=== PATIENT | female | born 1985 | race Asian ===

== ENCOUNTER 2016-12-30 17:54 | Emergency (ER) | payer OTHER ==
[2016-12-30 18:22] VITALS: BMI 33.8
[2016-12-30 19:27] LABS: URINE APPEARANCE CLEAR; URINE BILIRUBIN NEGATIVE (NEGATIVE); URINE BLOOD NEGATIVE (NEGATIVE); URINE COLOR LTYELLOW; URINE GLUCOSE (UA) NEGATIVE (NEGATIVE); URINE KETONE NEGATIVE (NEGATIVE); URINE LEUK ESTERASE NEGATIVE (NEGATIVE); URINE NITRITE NEGATIVE (NEGATIVE); URINE PROTEIN NEGATIVE (NEGATIVE); URINE UROBILINOGEN NEGATIVE mg/dL (0.2-1.0)
[2016-12-30] MEDS ORDERED: SODIUM CHLORIDE 1,000 ML IV STA (19:28)
--- NOTE | 2016-12-30 19:29 | PDOC ---
History of Present Illness - General Chief Complaint: Weakness Stated Complaint: WEAKNESS Time Seen by Provider: 12/30/16 19:27 - History of Present Illness Initial Comments: 12/30/16 20:29 31 year old female c/o generalized weakness and intermittent LUQ pain x 1 week. Patient history of depression with ch[facility] antidepressant use. patient reports hasn't seek medical care due to school obligation. patient has a follow up with pmd tomorrow. denies SI, HI Past History - Travel Traveled outside of the country in the last 30 days: Yes Close contact w/someone who was outside of country & ill: No - Past Medical History Allergies/Adverse Reactions: Allergies Allergy/AdvReac Type Severity Reaction Status Date / Time No Known Allergies Allergy Verified 12/30/16 18:22 Home Medications: Ambulatory Orders Quetiapine Fumarate [Seroquel -] 300 mg PO HS 06/30/12 Aripiprazole [Abilify -] 1 tab PO HS 01/25/15 Benztropine Mesylate 1 tab PO HS 01/25/15 Clonazepam [KlonoPIN] 1 tab PO BID 01/25/15 Fluoxetine HCl 3 cap PO HS 01/25/15 Iron,Carbonyl/Vit C/Vit B12/FA [Fe C Plus Tablet] 1 each PO DAILY 01/25/15 Anemia: Yes (IRON DEFICIENCY ANEMIA) Asthma: No Cancer: No Cardiac Disorders: No CVA: No COPD: No CHF: No Dementia: No Diabetes: No GI Disorders: Yes (CONSTIPATION,ABDOMINAL PAIN.GERD) Disorders: No HTN: No Hypercholesterolemia: No Liver Disease: No Psychiatric Problems: Yes (depression, anxiety) Seizures: No Thyroid Disease: No - Surgical History Abdominal Surgery: No Appendectomy: No Cardiac Surgery: No Cholecystectomy: No Lung Surgery: No Neurologic Surgery: No Orthopedic Surgery: No - Psycho/Social/Smoking Cessation Hx Anxiety: No Suicidal Ideation: No Smoking Status: No Smoking History: Never smoked Have you smoked in the past 12 months: No Number of Cigarettes Smoked Daily: 0 Information on smoking cessation initiated: No Hx Alcohol Use: No Drug/Substance Use Hx: No Substance Use Type: None Hx Substance Use Treatment: No Review of Systems - Review of Systems Able to Perform ROS?: Yes Is the patient limited Sinhala proficient: No Constitutional: No: Symptoms Reported, See HPI, Chills, Diaphoresis, Fever, Loss of Appetite, Malaise, Night Sweats, Weakness, Weight Stable, Unintentional Wgt. Loss, Unexplained wgt Loss, Other ABD/GI: Yes: Abdominal cramping (intermittent currently asymptomatic) *Physical Exam - Vital Signs Last Vital Signs Temp Pulse Resp BP Pulse Ox 98 F 96 H 18 120/71 98 12/30/16 18:16 12/30/16 18:16 12/30/16 18:16 12/30/16 18:16 12/30/16 18:16 - Physical Exam General Appearance: Yes: Appropriately Dressed Respiratory/Chest: positive: Lungs Clear Cardiovascular: positive: Regular Rhythm, Regular Rate Gastrointestinal/Abdominal: positive: Normal Bowel Sounds, Soft Musculoskeletal: positive: Normal Inspection. negative: CVA Tenderness Extremity: positive: Normal Capillary Refill, Normal Inspection, Normal Range of Motion Integumentary: positive: Normal Color, Dry, Warm Neurologic: positive: Fully Oriented, Alert, Normal Mood/Affect ED Treatment Course - LABORATORY CBC & Chemistry Diagram: 12/30/16 19:43 12/30/16 19:43 Medical Decision Making - Medical Decision Making 12/30/16 21:37 A: GERD? weakness P: CBC CMP urine UA *DC/Admit/Observation/Transfer Diagnosis at time of Disposition: Weakness generalized - Discharge Dispostion Disposition: HOME - Referrals Referrals: Mishel Castañeda MD [Primary Care Provider] - - Patient Instructions Printed Discharge Instructions: DI for Dehydration -- Adult Additional Instructions: drink plenty of fluids. follow up with your doctor as soon as possible. you may take Maalox for GAS/ acid reflux. this is over the counter
[2016-12-30 19:55] LABS: BASOPHIL 0.7 % (0-2.0); EOSINOPHIL 1.5 % (0-4.5); MCH 28.8 pg (25.7-33.7); MCHC 33.4 g/dl (32.0-36.0); MEAN PLT VOLUME 7.7 fl (7.5-11.1); NEUTROPHILS 58.4 % (42.8-82.8); PLATELET COUNT 316 K/MM3 (134-434); RDW 14.6 % (11.6-15.6); WHITE BLOOD COUNT 7.3 K/mm3 (4.0-10.0)
--- NOTE | 2016-12-30 20:02 | PDOC ---
*Physical Exam - Vital Signs Last Vital Signs Temp Pulse Resp BP Pulse Ox 98 F 96 H 18 120/71 98 12/30/16 18:16 12/30/16 18:16 12/30/16 18:16 12/30/16 18:16 12/30/16 19:26 ED Treatment Course - LABORATORY CBC & Chemistry Diagram: 12/30/16 19:43 12/30/16 19:43 - ADDITIONAL ORDERS Additional order review: Laboratory Results 12/30/16 12/30/16 19:17 19:17 Urine Color Ltyellow Urine Appearance Clear Urine pH 5.0 Urine Protein Negative Urine Glucose (UA) Negative Urine Ketones Negative Urine Blood Negative Urine Nitrite Negative Urine Bilirubin Negative Urine Urobilinogen Negative Ur Leukocyte Esterase Negative Urine HCG, Qual Negative Medical Decision Making - Medical Decision Making 12/30/16 20:02 agree with care from LILLIAM John *DC/Admit/Observation/Transfer Diagnosis at time of Disposition: Weakness generalized - Discharge Dispostion Disposition: HOME - Referrals Referrals: Mishel Castañeda MD [Primary Care Provider] - - Patient Instructions Printed Discharge Instructions: DI for Dehydration -- Adult Additional Instructions: drink plenty of fluids. follow up with your doctor as soon as possible. you may take Maalox for GAS/ acid reflux. this is over the counter
[2016-12-30 20:17] LABS: ALBUMIN 3.6 g/dl (3.4-5.0); ANION GAP 6 (8-16); CALCIUM 8.4 mg/dL (8.5-10.1); CO2 27 mmol/L (21-32); CREATININE 0.7 mg/dL (0.55-1.02); GLUCOSE,RANDOM 110 mg/dL (74-106); SGOT/AST 21 U/L (15-37); SGPT/ALT 28 U/L (12-78)
[2016-12-30 20:18] LABS: ALK PHOS 95 U/L (45-117)
[2016-12-30 20:25] LABS: BILIRUBIN,TOTAL < 0.1 mg/dL (0.2-1.0)
[2016-12-30 21:39] VITALS: BP 135/80; PULSE 82; TEMP 98.2
== END 2016-12-30 21:39 | disposition home or self-care (01) ==
LOC: JER 17:54
PROC: 3E0337Z Introduction of Electrolytic and Water Balance Substance into Peripheral Vein, Percutaneous Approach (ICD-10-PCS; principal; 2016-12-30)
DX: R53.1 Weakness (principal); E86.0 Dehydration; D50.8 Other iron deficiency anemias; F41.8 Other specified anxiety disorders
CPT/HCPCS: 36415; 80053; 81003; 84443; 84703; 85025; 96360; 99284-25

== ENCOUNTER 2017-10-22 18:57 | Emergency (ER) | payer OTHER ==
[2017-10-22 19:18] VITALS: BMI 33.8
--- NOTE | 2017-10-22 19:19 | PDOC ---
Rapid Medical Evaluation Time Seen by Provider: 10/22/17 19:14 Medical Evaluation: Allergies Allergy/AdvReac Type Severity Reaction Status Date / Time No Known Allergies Allergy Verified 12/30/16 18:22 10/22/17 19:14 I have performed a brief in-person evaluation of this patient. The patient presents with a chief complaint of abdominal cramp since this afternoon. States menstruation started yesterday, with no nausea or vomiting. Denies dizziness or shortness of breath Pertinent physical exam findings: NAD abdomen + bowel sounds, non tender I have ordered the following: took advil at 3pm The patient will proceed to the ED for further evaluation.
--- NOTE | 2017-10-22 20:02 | PDOC ---
History of Present Illness - General Chief Complaint: Pain, Acute Stated Complaint: ABD PAIN Time Seen by Provider: 10/22/17 19:14 - History of Present Illness Initial Comments: 32 year old female with multiple pscyhiatric comorbidities complaining of sudden onset lower abdominal pain a few hours prior while at work that subsided on its own. She had not pain on presentation to the ED. She is currently on her menses. Describes the pain as a lower abdominal cramping that started on the right side and radiated to the left then ceased. She has been scanned in the past for renal stones without any positive findings. Denies fevers, nausea, vomiting, diarrhea, constipation, or other symptoms. 10/22/17 23:05 Past History - Past Medical History Allergies/Adverse Reactions: Allergies Allergy/AdvReac Type Severity Reaction Status Date / Time No Known Allergies Allergy Verified 10/22/17 19:14 Home Medications: Ambulatory Orders Quetiapine Fumarate [Seroquel -] 300 mg PO HS 06/30/12 Aripiprazole [Abilify -] 1 tab PO HS 01/25/15 Benztropine Mesylate 1 tab PO HS 01/25/15 Fluoxetine HCl 3 cap PO HS 01/25/15 Iron,Carb/Vit C/Vit B12/Folic [Fe C Plus Tablet] 1 each PO DAILY 01/25/15 clonazePAM [KlonoPIN] 1 tab PO BID 01/25/15 Cephalexin Monohydrate [Keflex -] 500 mg PO BID #14 capsule 04/08/17 Anemia: Yes (IRON DEFICIENCY ANEMIA) Asthma: No Cancer: No Cardiac Disorders: No CVA: No COPD: No CHF: No Dementia: No Diabetes: No GI Disorders: Yes (CONSTIPATION,ABDOMINAL PAIN.GERD) Disorders: No HTN: No Hypercholesterolemia: No Liver Disease: No Psychiatric Problems: Yes (depression, anxiety) Seizures: No Thyroid Disease: No - Surgical History Abdominal Surgery: No Appendectomy: No Cardiac Surgery: No Cholecystectomy: No Lung Surgery: No Neurologic Surgery: No Orthopedic Surgery: No - Suicide/Smoking/Psychosocial Hx Smoking Status: No Smoking History: Never smoked Have you smoked in the past 12 months: No Number of Cigarettes Smoked Daily: 0 Hx Alcohol Use: No Drug/Substance Use Hx: No Substance Use Type: None Hx Substance Use Treatment: No Review of Systems - Review of Systems Constitutional: No: Chills, Diaphoresis, Fever HEENTM: No: Blurred Vision, Tearing, Recent change in vision, Double Vision, Cataracts Respiratory: No: Cough, Shortness of Breath Cardiac (ROS): No: Chest Pain, Edema, Lightheadedness ABD/GI: No: Diarrhea, Nausea, Vomiting : Yes: Other (menses). No: Burning, Dysuria, Discharge Musculoskeletal: No: Back Pain, Gout, Joint Pain Integumentary: No: Bruising, Change in Color, Flushing, Lesions, Lumps Neurological: No: Headache, Numbness, Paresthesia Psychiatric: Yes: Anxiety, Depression, Emotional Problems Endocrine: No: Flushing, Intolerance to Cold Hematologic/Lymphatic: No: Anemia, Blood Clots, Easy Bleeding, Easy Bruising *Physical Exam - Vital Signs Last Vital Signs Temp Pulse Resp BP Pulse Ox 98.4 F 77 19 115/73 99 10/22/17 19:15 10/22/17 19:15 10/22/17 19:15 10/22/17 19:15 10/22/17 19:15 - Physical Exam General Appearance: Yes: Nourished, Appropriately Dressed. No: Apparent Distress HEENT: positive: EOMI, SANDRA, Normal ENT Inspection, Normal Voice Neck: positive: Trachea midline, Normal Thyroid, Supple. negative: Tender, Rigid Respiratory/Chest: positive: Lungs Clear, Normal Breath Sounds. negative: Chest Tender, Respiratory Distress, Accessory Muscle Use Cardiovascular: positive: Regular Rhythm, Regular Rate Gastrointestinal/Abdominal: positive: Normal Bowel Sounds, Flat, Soft. negative : Tender Musculoskeletal: positive: Normal Inspection. negative: CVA Tenderness Extremity: positive: Normal Capillary Refill, Normal Inspection, Normal Range of Motion, Pelvis Stable. 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 Labs WNL and renal ultrasound not demonstrating any acute pathology. Abdominal exam completely benign. Will DC with Tylenol and ibuprofen use instructions. 10/22/17 23:28 *DC/Admit/Observation/Transfer Diagnosis at time of Disposition: Abdominal pain Qualifiers: Abdominal location: lower abdomen, unspecified Qualified Code(s): R10.30 - Lower abdominal pain, unspecified - Discharge Dispostion Disposition: HOME Condition at time of disposition: Improved Decision to Admit order: No - Referrals Referrals: Mishel Castañeda MD [Primary Care Provider] - - Patient Instructions Printed Discharge Instructions: DI for Acute Abdomen Additional Instructions: Please use Tylenol and ibuprofen for your abdominal pain. Your labs were all fine. Please follow up with Dr. Castañeda within a few days. Please return to the ED if you have new or worsening symptoms. - Post Discharge Activity
--- NOTE | 2017-10-22 20:25 | PDOC ---
Attending Attestation - HPI HPI: 10/22/17 21:12 The patient is a 32 year old female, with a significant past medical history of anemia, constipation, GERD, depression and anxiety, who presents to the emergency department complaining of abdominal pain for the past 3 hours. She describes her abdominal pain as localized in the lower quadrants, without radiation or modifying factors. She notes that she is currently on her menstrual period and she is having heavy bleeding. The patient denies chest pain, shortness of breath, headache or dizziness. Denies fever, chills, nausea, vomiting, diarrhea and constipation. Denies dysuria, frequency, urgency and hematuria. LMP: Current Allergies: None Past surgical history: None reported Social History: No alcohol, tobacco or drug use reported - Physicial Exam PE: 10/22/17 21:12 Constitutional: Awake, alert, oriented. No acute distress. Head: Normocephalic. Atraumatic Eyes: PERRL. EOMI. Conjunctivae are not pale. ENT: Mucous membranes are moist and intact. Posterior pharynx without exudates or erythema. Uvula midline. Neck: Supple. Full ROM. No lymphadenopathy. Cardiovascular: Regular rate. Regular rhythm. S1, S2 regular. Distal pulses are 2+ and symmetric. Pulmonary/Chest: No evidence of respiratory distress. Clear to auscultation bilaterally No wheezing, rales or rhonchi. Abdominal: Soft and non-distended. There is no tenderness. No rebound, guarding or rigidity. No organomegaly. No palpable masses. Good bowel sounds. Back: No CVA tenderness. Musculoskeletal: No edema. No cyanosis. No clubbing. Full range of motion in all extremities. Nocalf tenderness. Radial/pedal pulses are intact and 2+ bilaterally Skin: Skin is warm and dry. No petechiae. No purpura. Neurological: Alert and oriented to person, place, and time. Cranial nerves II -XII are grossly intact. Normal speech. Strength is grossly symmetric. No sensory deficits. Psychiatric: Good eye contact. Normal interaction, affect and behavior. <Bucky Bettencourt - Last Filed: 10/22/17 21:12> - Resident Resident Name: Nini Justin - ED Attending Attestation I have performed the following: I have examined & evaluated the patient, The case was reviewed & discussed with the resident, I agree w/resident's findings & plan, Exceptions are as noted - Medical Decision Making 10/22/17 20:25 I, Dr. Aishwarya Gonzalez, DO, attest that this document has been prepared under my direction and personally reviewed by me in its entirety. I further attest, that it accurately reflects all work, treatment, procedures and medical decision -making performed by me. 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 states today lower abd pain feels worse than just her cramping will check labs, renal u/s given lower abd pain that radiates to flank will check for uti will monitor and reassess 10/23/17 01:51 labs reviewed 10/23/17 01:51 pt denies all pain feels better resident discussed lab and imaging results iwth the patient stable for d/c to home <Aishwarya Gonzalez - Last Filed: 10/23/17 01:52>
[2017-10-22 21:42] LABS: HCG,QUALITATIVE URINE NEGATIVE
[2017-10-22 21:44] LABS: URINE APPEARANCE CLOUDY; URINE BILIRUBIN NEGATIVE (<2.0 mg/dL); URINE COLOR DKYELLOW; URINE GLUCOSE (UA) NEGATIVE (NEGATIVE); URINE KETONE NEGATIVE (NEGATIVE); URINE NITRITE NEGATIVE (NEGATIVE); URINE UROBILINOGEN NEGATIVE mg/dL (0.2-1.0)
[2017-10-22 21:45] LABS: BASO % 0.3 % (0-2.0); EOS % 0.2 % (0-4.5); HEMATOCRIT 40.5 % (32.4-45.2); HEMOGLOBIN 13.3 GM/dL (10.7-15.3); MCH 28.1 pg (25.7-33.7); MCHC 32.9 g/dl (32.0-36.0); MEAN CELL VOLUME 85.4 fl (80-96); MEAN PLT VOLUME 7.8 fl (7.5-11.1); MONO % 3.2 % (3.8-10.2); NEUT % 85.3 % (42.8-82.8); PLATELET COUNT 344 K/MM3 (134-434); RBC 4.75 M/mm3 (3.60-5.2); RDW 14.9 % (11.6-15.6); WHITE BLOOD COUNT 10.3 K/mm3 (4.0-10.0)
[2017-10-22 21:54] LABS: URINE LEUK ESTERASE 1+ (NEGATIVE); URINE PROTEIN 2+ (NEGATIVE)
[2017-10-22 21:56] LABS: EPI CELLS FEW /HPF (FEW); URINE MUCUS RARE
[2017-10-22 22:10] LABS: ALBUMIN 3.8 g/dl (3.4-5.0); ALK PHOS 84 U/L (45-117); ANION GAP 6 (8-16); BILIRUBIN,TOTAL 0.2 mg/dL (0.2-1.0); BLOOD UREA NITROGEN 20 mg/dL (7-18); CALCIUM 8.7 mg/dL (8.5-10.1); CHLORIDE 107 mmol/L (98-107); CO2 27 mmol/L (21-32); CREATININE 0.8 mg/dL (0.55-1.02); GLUCOSE,RANDOM 94 mg/dL (74-106); LIPASE 141 U/L (73-393); POTASSIUM 4.3 mmol/L (3.5-5.1); SGOT/AST 25 U/L (15-37); SGPT/ALT 28 U/L (12-78); SODIUM 140 mmol/L (136-145); TOT PROT 7.8 g/dl (6.4-8.2)
[2017-10-23] VITALS: BP 126/78; PULSE 89; TEMP 98.5
== END 2017-10-23 00:01 | disposition home or self-care (01) ==
LOC: JER 18:57
DX: N94.6 Dysmenorrhea, unspecified (principal)
CPT/HCPCS: 36415; 76775-TC; 80053; 81003; 81015; 83690; 84703; 85025; 99281-25

== ENCOUNTER 2018-03-19 16:24 | Emergency (ER) | payer OTHER ==
[2018-03-19 17:01] VITALS: BP 127/77; PULSE 83; TEMP 98.9; BMI 35.5
--- NOTE | 2018-03-19 17:37 | PDOC ---
History of Present Illness - General Chief Complaint: Pain Stated Complaint: ABD PAIN History Source: Patient Exam Limitations: No Limitations - History of Present Illness Travel History: No Initial Comments: 03/19/18 17:35 33 yr female with 5-6 months on and off left sided abd pain with loose stool after eating and with menses. Pt denies nv no fever or chills. Pt has been seen in this ER for same, pt has seen GI 5 months ago negative workup, however pt has not had colonoscopy. pt denies sexual activity. pt admits to takin iron pills when she has her menses suffers from constipation. Past History - Past Medical History Allergies/Adverse Reactions: Allergies Allergy/AdvReac Type Severity Reaction Status Date / Time No Known Allergies Allergy Verified 03/19/18 16:57 Home Medications: Ambulatory Orders Quetiapine Fumarate [Seroquel -] 300 mg PO HS 06/30/12 Aripiprazole [Abilify -] 1 tab PO HS 01/25/15 Benztropine Mesylate 1 tab PO HS 01/25/15 Fluoxetine HCl 3 cap PO HS 01/25/15 Iron,Carb/Vit C/Vit B12/Folic [Fe C Plus Tablet] 1 each PO DAILY 01/25/15 clonazePAM [KlonoPIN] 1 tab PO BID 01/25/15 Cephalexin Monohydrate [Keflex -] 500 mg PO BID #14 capsule 04/08/17 Anemia: Yes (IRON DEFICIENCY ANEMIA) Asthma: No Cancer: No Cardiac Disorders: No CVA: No COPD: No CHF: No Dementia: No Diabetes: No GI Disorders: Yes (CONSTIPATION,ABDOMINAL PAIN.GERD) Disorders: No HTN: No Hypercholesterolemia: No Liver Disease: No Psychiatric Problems: Yes (depression, anxiety) Seizures: No Thyroid Disease: No - Surgical History Abdominal Surgery: No Appendectomy: No Cardiac Surgery: No Cholecystectomy: No Lung Surgery: No Neurologic Surgery: No Orthopedic Surgery: No - Immunization History Immunization Up to Date: Yes - Suicide/Smoking/Psychosocial Hx Smoking Status: No Smoking History: Never smoked Have you smoked in the past 12 months: No Number of Cigarettes Smoked Daily: 0 Hx Alcohol Use: No Drug/Substance Use Hx: No Substance Use Type: None Hx Substance Use Treatment: No Abd/GI Specific PMHX - Complaint Specific PMHX Colitis: No Diverticulitis: No Gall Bladder Disease: No GERD: No Hepatitis: No Irritable Bowel Synd (IBS): No Pancreatitis: No GI Ulcer Disease: No *Physical Exam - Vital Signs Last Vital Signs Temp Pulse Resp BP Pulse Ox 98.9 F 83 18 127/77 98 03/19/18 16:57 03/19/18 16:57 03/19/18 16:57 03/19/18 16:57 03/19/18 16:57 - Physical Exam General Appearance: Yes: Nourished, Appropriately Dressed HEENT: positive: EOMI, SANDRA, Normal ENT Inspection, TMs Normal, Pharynx Normal Neck: positive: Supple Respiratory/Chest: positive: Lungs Clear, Normal Breath Sounds Cardiovascular: positive: Regular Rhythm, Regular Rate Gastrointestinal/Abdominal: positive: Normal Bowel Sounds, Soft, Other (obese) Rectal Exam: positive: heme negative stool, normal exam, normal rectal tone, hemorrhoids (internal hemorrhoid , no bleeding guiac negative) Lymphatic: negative: Adenopathy Musculoskeletal: positive: Normal Inspection Extremity: positive: Normal Capillary Refill, Normal Inspection, Normal Range of Motion Integumentary: positive: Normal Color, Dry, Warm Neurologic: positive: Fully Oriented, Alert, Normal Mood/Affect, Normal Response , Motor Strength 5/5 Medical Decision Making - Medical Decision Making 03/19/18 17:37 cc: left side abd pain loose stool worse after eating on and off for 5-6 months pt has not followed up with GI since 5 months ago pt denies fever no vomiting or travel internationally pt is stable non toxic neg abd tenderness on exam labs reviewed and ct, US reviewed from previous visit, copies given to patient to bring to GI 03/19/18 17:38 03/19/18 18:06 *DC/Admit/Observation/Transfer Diagnosis at time of Disposition: Abdominal pain Qualifiers: Abdominal location: left upper quadrant Qualified Code(s): R10.12 - Left upper quadrant pain - Referrals Referrals: Geraldine Grace MD [Staff Physician] - - Patient Instructions Additional Instructions: please follow with the roll form operator for further evaluation call Thursday to make appointment STOP taking iron as this makes constipation worse please get miralax and take as directed for constipation take motrin as needed with food for menstrual cramps eat a high fiber diet , drink at least 2 liters of water a day avoid fatty foods, return if any worsening symptoms - Post Discharge Activity
[2018-03-19] MEDS ORDERED: MAG HYDROX/AL HYDROX/SIMETH -MYLANTA- ORAL SUSPENSION PO ONE (17:39)
[2018-03-19] MEDS ORDERED: MAG HYDROX/AL HYDROX/SIMETH 30 ML UNIT-DOSE CUP ONE (17:50)
[2018-03-19 18:04] LABS: URINE APPEARANCE CLEAR; URINE BILIRUBIN NEGATIVE (<2.0 mg/dL); URINE COLOR LTYELLOW; URINE GLUCOSE (UA) NEGATIVE (NEGATIVE); URINE KETONE NEGATIVE (NEGATIVE); URINE LEUK ESTERASE NEGATIVE (NEGATIVE); URINE NITRITE NEGATIVE (NEGATIVE); URINE PROTEIN NEGATIVE (NEGATIVE); URINE UROBILINOGEN NEGATIVE mg/dL (0.2-1.0)
[2018-03-19 18:05] LABS: HCG,QUALITATIVE URINE Negative
[2018-03-19 18:29] LABS: EPI CELLS RARE /HPF (FEW)
== END 2018-03-19 19:44 | disposition home or self-care (01) ==
LOC: JERFT 16:24
DX: R10.12 Left upper quadrant pain (principal); K21.9 Gastro-esophageal reflux disease without esophagitis; D50.9 Iron deficiency anemia, unspecified; F41.8 Other specified anxiety disorders; F32.9 Major depressive disorder, single episode, unspecified
CPT/HCPCS: 81003; 81015; 84703; 99281-25

== ENCOUNTER 2018-07-11 19:03 | Emergency (ER) | payer OTHER ==
[2018-07-11 19:22] VITALS: BP 117/78; PULSE 96; TEMP 98.8; BMI 32.4
--- NOTE | 2018-07-11 19:42 | PDOC ---
History of Present Illness - General Chief Complaint: Urinary Problem Stated Complaint: ABDOMINAL PAIN Time Seen by Provider: 07/11/18 19:37 - History of Present Illness Initial Comments: 07/11/18 19:42 33-year-old female presents for evaluation of dysuria times one week without systemic symptoms Past History - Past Medical History Allergies/Adverse Reactions: Allergies Allergy/AdvReac Type Severity Reaction Status Date / Time No Known Allergies Allergy Verified 07/11/18 19:22 Home Medications: Ambulatory Orders Quetiapine Fumarate [Seroquel -] 300 mg PO HS 06/30/12 Aripiprazole [Abilify -] 1 tab PO HS 01/25/15 Benztropine Mesylate 1 tab PO HS 01/25/15 Fluoxetine HCl 3 cap PO HS 01/25/15 Iron,Carb/Vit C/Vit B12/Folic [Fe C Plus Tablet] 1 each PO DAILY 01/25/15 clonazePAM [KlonoPIN] 1 tab PO BID 01/25/15 Anemia: Yes (IRON DEFICIENCY ANEMIA) Asthma: No Cancer: No Cardiac Disorders: No CVA: No COPD: No CHF: No Dementia: No Diabetes: No GI Disorders: Yes (CONSTIPATION,ABDOMINAL PAIN.GERD) Disorders: No HTN: No Hypercholesterolemia: No Liver Disease: No Psychiatric Problems: Yes (depression, anxiety) Seizures: No Thyroid Disease: No - Surgical History Abdominal Surgery: No Appendectomy: No Cardiac Surgery: No Cholecystectomy: No Lung Surgery: No Neurologic Surgery: No Orthopedic Surgery: No - Immunization History Immunization Up to Date: Yes - Suicide/Smoking/Psychosocial Hx Smoking Status: No Smoking History: Never smoked Have you smoked in the past 12 months: No Number of Cigarettes Smoked Daily: 0 Hx Alcohol Use: No Drug/Substance Use Hx: No Substance Use Type: None Hx Substance Use Treatment: No Review of Systems - Review of Systems Constitutional: No: Fever : Yes: Dysuria *Physical Exam - Vital Signs Last Vital Signs Temp Pulse Resp BP Pulse Ox 98.8 F 96 H 20 117/78 99 07/11/18 19:19 07/11/18 19:19 07/11/18 19:19 07/11/18 19:19 07/11/18 19:19 - Physical Exam Comments: 07/11/18 19:42 HEAD: NC/AT EYES: Conjuntiva clear MS: Full ROM in all joints without edema NEUROLOGIC: No gross sensory or motor deficits, NVID SKIN: Normal color and temperature no lesions or rashes 07/11/18 20:22 NECK: Supple without adenopathy CARDIAC: S1 S2 LUNGS: CTA Full and Equal breath sounds ABDOMEN: Diffuse abdominal tenderness without guarding or rebound; no CVA tenderness. Moderate Sedation - Procedure Monitoring Vital Signs: Procedure Monitoring Vital Signs Temperature 98.8 F 07/11/18 19:19 Pulse Rate 96 H 07/11/18 19:19 Respiratory Rate 20 07/11/18 19:19 Blood Pressure 117/78 07/11/18 19:19 O2 Sat by Pulse Oximetry (%) 99 07/11/18 19:19 Medical Decision Making - Medical Decision Making 07/11/18 20:23 Patient now complains of abdominal pain. She was reassessed she does have abdominal tenderness without guarding or rebound. I will order belly labs and get a CAT scan her urine is negative I will transfer her to the main emergency room *DC/Admit/Observation/Transfer Diagnosis at time of Disposition: Abdominal pain - Referrals - Patient Instructions - Post Discharge Activity
[2018-07-11 19:48] LABS: URINE APPEARANCE SLCLOUDY; URINE BILIRUBIN NEGATIVE (<2.0 mg/dL); URINE COLOR YELLOW; URINE GLUCOSE (UA) NEGATIVE (NEGATIVE); URINE KETONE NEGATIVE (NEGATIVE); URINE LEUK ESTERASE NEGATIVE (NEGATIVE); URINE NITRITE NEGATIVE (NEGATIVE); URINE PROTEIN NEGATIVE (NEGATIVE); URINE UROBILINOGEN NEGATIVE mg/dL (0.2-1.0)
[2018-07-11 19:50] LABS: HCG,QUALITATIVE URINE Negative
[2018-07-11 20:36] LABS: BASO % 0.8 % (0-2.0); EOS % 1.9 % (0-4.5); HEMATOCRIT 38.5 % (32.4-45.2); HEMOGLOBIN 13.3 GM/dL (10.7-15.3); LYMPH % 38.1 % (8-40); MCH 29.6 pg (25.7-33.7); MCHC 34.5 g/dl (32.0-36.0); MEAN CELL VOLUME 85.7 fl (80-96); MEAN PLT VOLUME 7.2 fl (7.5-11.1); MONO % 6.2 % (3.8-10.2); PLATELET COUNT 394 K/MM3 (134-434); RBC 4.49 M/mm3 (3.60-5.2); RDW 14.3 % (11.6-15.6)
--- NOTE | 2018-07-11 20:57 | PDOC ---
*Physical Exam - Vital Signs Last Vital Signs Temp Pulse Resp BP Pulse Ox 98.8 F 96 H 20 117/78 99 07/11/18 19:19 07/11/18 19:19 07/11/18 19:19 07/11/18 19:19 07/11/18 19:19 ED Treatment Course - LABORATORY CBC & Chemistry Diagram: 07/11/18 20:28 07/11/18 20:28 - ADDITIONAL ORDERS Additional order review: Laboratory Results 07/11/18 19:30 Urine Color Yellow Urine Appearance Slcloudy Urine pH 7.0 Ur Specific [place] 1.023 Urine Protein Negative Urine Glucose (UA) Negative Urine Ketones Negative Urine Blood Negative Urine Nitrite Negative Urine Bilirubin Negative Urine Urobilinogen Negative Ur Leukocyte Esterase Negative Urine HCG, Qual Negative 07/11/18 20:28 RBC 4.49 MCV 85.7 MCHC 34.5 RDW 14.3 MPV 7.2 L Neutrophils % 53.0 D Lymphocytes % 38.1 D Monocytes % 6.2 D Eosinophils % 1.9 D Basophils % 0.8 Progress Note - Progress Note Progress Note: Received signout from ROS Kendrick. Briefly this is a 33-year-old woman with extensive psychiatric history presents emergency department for evaluation of dysuria for 1 week. Patient noted to have clean urinalysis but hasn't abdominal tenderness on exam by previous provider. Patient was ordered for laboratory testing and CAT scan. Patient is pending CT at this time. Medical Decision Making - Medical Decision Making 07/11/18 23:43 CAT scan is read by imaging business continuity planning director: Large amount of stool in colon. No obstruction present.Questionable 2.5 cm right adnexal cyst versus multiple follicles. Otherwise normal exam. I will discharge patient home to follow-up with her primary doctor. I discussed the physical exam findings, ancillary test results and final diagnoses with the patient. I answered all of the patient's questions. The patient was satisfied with the care received and felt comfortable with the discharge plan and treatment plan. The patient will call their primary care physician within 24 hours to arrange follow-up and will return to the Emergency Department with any new, persistent or worsening symptoms. *DC/Admit/Observation/Transfer Diagnosis at time of Disposition: Abdominal pain Qualifiers: Abdominal location: lower abdomen, unspecified Qualified Code(s): R10.30 - Lower abdominal pain, unspecified - Discharge Dispostion Disposition: HOME Condition at time of disposition: Stable Decision to Admit order: No - Referrals - Patient Instructions Additional Instructions: Your CAT scan showed a 2.5 cm structure on your right ovary which could be a cyst or multiple follicles. He will also have a large amount of stool in your colon. Make an appointment for evaluation with your galley worker. Drink plenty of water. Eat a diet high in fiber. Take Tylenol or Motrin as needed for pain. Follow edge runner's instructions for appropriate dosage. Return to the emergency department for any new or worsening symptoms. Thank you very much for choosing us to provide your emergent health care needs. - Post Discharge Activity
[2018-07-11 21:09] LABS: ALBUMIN 3.7 g/dl (3.4-5.0); ALK PHOS 95 U/L (45-117); ANION GAP 6 MMOL/L (8-16); BILIRUBIN,TOTAL 0.3 mg/dL (0.2-1); BLOOD UREA NITROGEN 15 mg/dL (7-18); CALCIUM 8.6 mg/dL (8.5-10.1); CHLORIDE 107 mmol/L (98-107); CO2 25 mmol/L (21-32); CREATININE 0.7 mg/dL (0.55-1.3); GLUCOSE,RANDOM 89 mg/dL (74-106); LIPASE 147 U/L (73-393); POTASSIUM 4.4 mmol/L (3.5-5.1); SGOT/AST 31 U/L (15-37); SGPT/ALT 31 U/L (13-61); SODIUM 138 mmol/L (136-145); TOT PROT 7.4 g/dl (6.4-8.2)
== END 2018-07-12 00:25 | disposition home or self-care (01) ==
LOC: JER 19:03 → JERFT 19:03 → JER 07-12 00:25
DX: N83.201 Unspecified ovarian cyst, right side (principal)
CPT/HCPCS: 36415; 74177-TC; 80053; 81003; 83690; 84703; 85025; 87086; 99281-25

== ENCOUNTER 2019-03-03 22:50 | Emergency (ER) | payer OTHER ==
[2019-03-03 23:05] VITALS: BP 115/76; PULSE 90; TEMP 98.2; BMI 32.4
--- NOTE | 2019-03-03 23:19 | PDOC ---
History of Present Illness - General Chief Complaint: Cold Symptoms Stated Complaint: FEVER/COLD SYMPTOMS Time Seen by Provider: 03/03/19 22:55 History Source: Patient Exam Limitations: No Limitations - History of Present Illness Initial Comments: 03/03/19 23:12 This is an obese 34-year-old female who comes in complaining of multiple medical complaints. 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 Patient saw her SALES TEAM MANAGER approximately 1-1/2 weeks ago and had a urinary test however was not told the result was positive until 2 days ago when she was started on Macrobid by her SALES TEAM MANAGER. Patient comes in complaining of chills, body aches, headaches and just generalized malaise. Patient denies any nausea vomiting or diarrhea. Patient is complaining of some mild low back pain. Allergies: as per nursing notes Past Medical History: none Social history: Lives with family. No smoking. No alcohol. No illicit drugs. Surgical history: None General: No fevers or chills, no weakness, no weight loss HEENT: No change in vision. No sore throat,. No ear pain CardioVascular: no chest discomfort. No shortness of breath Respiratory:No cough, or wheezing. Gastrointestinal: no nausea, vomiting, diarrhea or constipation, No rectal bleeding Genitourinary: No dysuria, hematuria, or frequency Musculoskeletal: No joint or muscle pain or swelling Neurologic: No headache, vertigo, dizziness or loss of consciousness Psychiatric: nor depression Skin: No rashes or easy bruising Endocrine: no increased thirst or abnormal weight change Allergic: no skin or latex allergy All other systems reviewed and normal Exam: General: Well-nourished well-developed individual, no acute distress HEENT: Throat: Normal, tonsils normal, no erythema or exudate Neck: Supple, no meningeal signs, no lymphadenopathy Eyes::Pupils equal reactive and round, extraocular motion intact Chest: Nontender to palpation Cardiac: S1-S2 normal, regular rate and rhythm, no murmurs rubs or gallops Respiratory: Lungs clear to auscultation bilateral Back: There is no CVA tenderness there is some mild low back pain/tenderness on palpation Abdomen: Soft, nondistended, normal bowel sounds, there is no tenderness on palpation diffusely Extremities: Warm, dry, no cyanosis, clubbing, or edema Skin: No rashes Neuro: Alert and oriented x3, CN II - XII intact, nonfocal exam with normal strength, normal sensation, normal reflexes, normal gait, Psych: Normal mood and affect 03/03/19 23:56 Assessment and plan: This 34-year-old female who comes in with multiple medical complaints had a basic work-up including CBC, comp. I did not do a urinalysis as patient is already being treated for urinary tract infection. Patient's work -up was negative for any abnormal labs. Patient exam was normal with the exception of some mild low back pain. Patient given a gram of ceftriaxone and discharged. Patient will follow-up with a primary care doctor Past History - Past Medical History Allergies/Adverse Reactions: Allergies Allergy/AdvReac Type Severity Reaction Status Date / Time No Known Allergies Allergy Verified 07/11/18 19:22 Home Medications: Ambulatory Orders Quetiapine Fumarate [Seroquel -] 300 mg PO HS 06/30/12 Aripiprazole [Abilify -] 1 tab PO HS 01/25/15 Benztropine Mesylate 1 tab PO HS 01/25/15 Fluoxetine HCl 3 cap PO HS 01/25/15 Iron,Carb/Vit C/Vit B12/Folic [Fe C Plus Tablet] 1 each PO DAILY 01/25/15 clonazePAM [KlonoPIN] 1 tab PO BID 01/25/15 Nitrofurantoin Macrocrystal [Nitrofurantoin] 100 mg PO BID 03/03/19 Anemia: Yes (IRON DEFICIENCY ANEMIA) Asthma: No Cancer: No Cardiac Disorders: No CVA: No COPD: No CHF: No Dementia: No Diabetes: No GI Disorders: Yes (CONSTIPATION,ABDOMINAL PAIN.GERD) Disorders: No HTN: No Hypercholesterolemia: No Liver Disease: No Psychiatric Problems: Yes (depression, anxiety) Seizures: No Thyroid Disease: No - Surgical History Abdominal Surgery: No Appendectomy: No Cardiac Surgery: No Cholecystectomy: No Lung Surgery: No Neurologic Surgery: No Orthopedic Surgery: No - Immunization History Immunization Up to Date: Yes - Psycho Social/Smoking Cessation Hx Smoking Status: No Smoking History: Never smoked Have you smoked in the past 12 months: No Number of Cigarettes Smoked Daily: 0 Hx Alcohol Use: No Drug/Substance Use Hx: No Substance Use Type: None Hx Substance Use Treatment: No Abd/GI Specific PMHX - Complaint Specific PMHX Colitis: No Diverticulitis: No Gall Bladder Disease: No GERD: No Hepatitis: No Irritable Bowel Synd (IBS): No Pancreatitis: No GI Ulcer Disease: No *Physical Exam - Vital Signs Last Vital Signs Temp Pulse Resp BP Pulse Ox 98.2 F 90 16 115/76 98 03/03/19 23:02 03/03/19 23:02 03/03/19 23:02 03/03/19 23:02 03/03/19 23:02 ED Treatment Course - LABORATORY CBC & Chemistry Diagram: 03/03/19 23:20 03/03/19 23:20 Discharge - Discharge Information Problems reviewed: Yes Clinical Impression/Diagnosis: Urinary tract infection Qualifiers: Urinary tract infection type: acute cystitis Hematuria presence: without hematuria Qualified Code(s): N30.00 - Acute cystitis without hematuria Condition: Stable Disposition: HOME - Admission No - Follow up/Referral Referrals: Angelito Castañeda MD [Primary Care Provider] - - Patient Discharge Instructions Additional Instructions: Continue your antibiotics as prescribed. Return to the emergency department immediately with ANY new, persistent or worsening symptoms. Continue any medications as previously prescribed by your physician. You should follow up with your primary doctor as soon as possible regarding today's emergency department visit. . Please make sure your doctor reviews the results of your emergency evaluation. Thank you for coming to the Emergency Department today for your care. It was a pleasure to see you today. Please note that your evaluation is INCOMPLETE until you follow-up with your doctor. - Post Discharge Activity
[2019-03-03 23:31] LABS: BASO % 0.4 % (0-2.0); EOS % 1.6 % (0-4.5); HEMATOCRIT 39.2 % (32.4-45.2); HEMOGLOBIN 13.2 GM/dl (10.7-15.3); LYMPH % 38.2 % (8-40); MCH 29.2 pg (25.7-33.7); MCHC 33.7 g/dl (32.0-36.0); MEAN CELL VOLUME 86.7 fl (80-96); MEAN PLT VOLUME 7.6 fl (7.5-11.1); NEUT % 52.8 % (42.8-82.8); PLATELET COUNT 376 K/MM3 (134-434); RBC 4.52 M/mm3 (3.60-5.2); RDW 13.5 % (11.6-15.6); WHITE BLOOD COUNT 6.2 K/mm3 (4.0-10.8)
[2019-03-03 23:44] LABS: ALBUMIN 3.9 g/dl (3.4-5.0); BILIRUBIN,TOTAL 0.3 mg/dl (0.2-1); CALCIUM 8.9 mg/dl (8.5-10); CREATININE 0.8 mg/dl (0.55-1.3); POTASSIUM 3.9 mmol/L (3.5-5.1)
[2019-03-03] MEDS ORDERED: cefTRIAXone SODIUM 1 GM VIAL ONE (23:51)
[2019-03-03] MEDS ORDERED: CEFTRIAXONE 1,000 MG in DEXTROSE 5%-WATER - 50 ML IVPB ONE (23:59)
== END 2019-03-04 00:06 | disposition home or self-care (01) ==
LOC: FER 22:50
DX: N30.00 Acute cystitis without hematuria (principal); F41.8 Other specified anxiety disorders; K59.00 Constipation, unspecified; K21.9 Gastro-esophageal reflux disease without esophagitis; D64.9 Anemia, unspecified
CPT/HCPCS: 36415; 80053; 85025; 99282-25

== ENCOUNTER 2019-03-16 17:04 | Emergency (ER) | payer OTHER ==
[2019-03-16 17:09] VITALS: BP 115/70; PULSE 81; TEMP 97.7; BMI 33.7
--- NOTE | 2019-03-16 17:10 | PDOC ---
Rapid Medical Evaluation Time Seen by Provider: 03/16/19 17:06 Medical Evaluation: Allergies Allergy/AdvReac Type Severity Reaction Status Date / Time No Known Allergies Allergy Verified 07/11/18 19:22 Vital Signs Temp Pulse Resp BP Pulse Ox 97.7 F 81 16 115/70 98 03/16/19 17:06 03/16/19 17:06 03/16/19 17:06 03/16/19 17:06 03/16/19 17:06 03/16/19 17:09 I have performed a brief in-person evaluation of this patient. The patient presents with a chief complaint of: cough, rash Pertinent physical exam findings:stable and in NAD, non-focal I have ordered the following: n/a The patient will proceed to the ED for further evaluation.
--- NOTE | 2019-03-16 18:18 | PDOC ---
History of Present Illness - General Chief Complaint: Cold Symptoms Stated Complaint: EVALUATION Time Seen by Provider: 03/16/19 17:06 - History of Present Illness Initial Comments: 03/16/19 18:15 34-year-old female without comorbidities presents for evaluation of cough without systemic symptoms x1 week sent by PCP for concern for mycoplasma Past History - Past Medical History Allergies/Adverse Reactions: Allergies Allergy/AdvReac Type Severity Reaction Status Date / Time No Known Allergies Allergy Verified 03/16/19 17:09 Home Medications: Ambulatory Orders Quetiapine Fumarate [Seroquel -] 300 mg PO HS 06/30/12 Aripiprazole [Abilify -] 1 tab PO HS 01/25/15 Benztropine Mesylate 1 tab PO HS 01/25/15 Fluoxetine HCl 3 cap PO HS 01/25/15 Iron,Carb/Vit C/Vit B12/Folic [Fe C Plus Tablet] 1 each PO DAILY 01/25/15 clonazePAM [KlonoPIN] 1 tab PO BID 01/25/15 Nitrofurantoin Macrocrystal [Nitrofurantoin] 100 mg PO BID 03/03/19 Azithromycin [Zithromax -] 250 mg PO UTDICT #6 tab 03/16/19 Guaifenesin Dm [Mucinex Dm -] 1 tab PO BID #60 tab.er.12h 03/16/19 Anemia: Yes (IRON DEFICIENCY ANEMIA) Asthma: No Cancer: No Cardiac Disorders: No CVA: No COPD: No CHF: No Dementia: No Diabetes: No GI Disorders: Yes (CONSTIPATION,ABDOMINAL PAIN.GERD) Disorders: No HTN: No Hypercholesterolemia: No Liver Disease: No Psychiatric Problems: Yes (depression, anxiety) Seizures: No Thyroid Disease: No - Surgical History Abdominal Surgery: No Appendectomy: No Cardiac Surgery: No Cholecystectomy: No Lung Surgery: No Neurologic Surgery: No Orthopedic Surgery: No - Immunization History Immunization Up to Date: Yes - Psycho Social/Smoking Cessation Hx Smoking Status: No Smoking History: Never smoked Have you smoked in the past 12 months: No Number of Cigarettes Smoked Daily: 0 Hx Alcohol Use: No Drug/Substance Use Hx: No Substance Use Type: None Hx Substance Use Treatment: No Review of Systems - Review of Systems Constitutional: No: Fever Respiratory: Yes: Cough *Physical Exam - Vital Signs Last Vital Signs Temp Pulse Resp BP Pulse Ox 97.7 F 81 16 115/70 98 03/16/19 17:06 03/16/19 17:06 03/16/19 17:06 03/16/19 17:06 03/16/19 17:06 - Physical Exam Comments: 03/16/19 18:16 GENERAL: The patient is awake, alert, and fully oriented, in no acute distress. HEAD: Normal with no signs of trauma. EYES: sclera anicteric, conjunctiva clear. ENT: Ears normal NECK: Normal range of motion LUNGS: Breath sounds equal, clear to auscultation bilaterally. Scant left basilar rhonchi which cleared with cough. HEART: S1 and S2 without murmur, rub or gallop. ABDOMEN: Soft, nontender, normoactive bowel sounds. No guarding, no rebound. No masses. EXTREMITIES: Normal range of motion, no edema. No clubbing or cyanosis. No cords, erythema, or tenderness. NEUROLOGICAL: Cranial nerves II through XII grossly intact. Normal speech, normal gait. PSYCH: Normal mood, normal affect. SKIN: Warm, Dry, normal turgor, no rashes or lesions noted. ED Treatment Course - RADIOLOGY Radiology Studies Ordered: Category Date Time Status CHEST PA & LAT [RAD] Stat Radiology 03/16/19 17:25 Taken Medical Decision Making - Medical Decision Making 03/16/19 18:16 We will treat for mycoplasma based on PCP recommendation Zithromax and Mucinex follow-up with PCP 03/16/19 18:17 No infiltrate on chest x-ray Discharge - Discharge Information Problems reviewed: Yes Clinical Impression/Diagnosis: Cough in adult Condition: Stable Disposition: HOME - Admission No - Follow up/Referral Referrals: Mishel Castañeda MD [Staff Physician] - - Patient Discharge Instructions Additional Instructions: Return to the emergency room for worsening symptoms. Please take the antibiotics and cough medicine as directed and follow-up with your primary care physician in 1 to 2 days for further evaluation and treatment options. Please follow-up without fail - Post Discharge Activity
== END 2019-03-16 18:37 | disposition home or self-care (01) ==
LOC: JERFT 17:04
DX: R05 Cough (principal); F41.8 Other specified anxiety disorders; K59.00 Constipation, unspecified; K21.9 Gastro-esophageal reflux disease without esophagitis; R10.9 Unspecified abdominal pain; D50.9 Iron deficiency anemia, unspecified
CPT/HCPCS: 71046-TC-FY; 87804; 99281-25

== ENCOUNTER 2019-05-05 05:21 | Day surgery (SDC) | payer OTHER ==
[2019-05-03 16:51] VITALS: BMI 34.2
[2019-05-05] MEDS ORDERED: IBUPROFEN 400 MG TABLET (FP) PO PRN (07:53)
[2019-05-05] MEDS ORDERED: ACETAMINOPHEN 325 MG TABLET (FP) PO PRN (07:53)
--- NOTE | 2019-05-05 07:53 | HP ---
History & Physical Update - History History: No Change - Physical Physical: No Change - Assessment Assessment: No Change - Plan Plan: No Change (No change in HP)
--- NOTE | 2019-05-05 07:57 | OP ---
Operative Note - Note: Operative Date: 05/05/19 Pre-Operative Diagnosis: Endometrial polyp Operation: Hysteroscopic myomectomy. suction DC Post-Operative Diagnosis: Same as Pre-op Surgeon: Nicki Mota Anesthesia: General Estimated Blood Loss (mls): 5 Operative Report Dictated: Yes
[2019-05-05] MEDS ORDERED: ONDANSETRON 4 MG/2 ML VIAL IVPUSH PRN (09:56)
[2019-05-05] MEDS ORDERED: oxyCODONE HCL 5 MG TABLET PO PRN (09:56)
[2019-05-05] MEDS ORDERED: LACTATED RINGERS SOLUTION 1,000 ML IV SCH (10:00)
[2019-05-05] MEDS ORDERED: LIDOCAINE HCL/PF 2% SDV 5ML VIAL ONE (10:15)
[2019-05-05] MEDS ORDERED: PROPOFOL 20 ML ONE (10:15)
[2019-05-05] MEDS ORDERED: MIDAZOLAM HCL 2 MG/2 ML SINGLE DOSE VIAL ONE ×2 (10:16)
[2019-05-05] MEDS ORDERED: DEXAMETHASONE SOD PHOSPHATE 4 MG/1 ML VIAL ONE (10:41)
[2019-05-05 15:00] VITALS: BP 124/74; PULSE 66; TEMP 98
--- NOTE | 2019-05-06 16:29 | PATH ---
Surgical Pathology Report Patient Name: MAIRA HANSEN [facility]. Rec. #: [id number] /Age/Gender: 1985 (Age: 34) / F Account: [id number] Location: [facility] SURGICAL Taken: 05/05/2019 Received: 05/05/2019 Reported: 05/06/2019 Physicians: Nicki Mota M.D. Specimen(s) Received FIBROIDS Clinical History Endometrial polyp Final Diagnosis FIBROID, HYSTEROSCOPIC MYOMECTOMY, SUCTION DILATION AND CURETTAGE: 3 G, BROAD BUNDLES OF SMOOTH MUSCLE SUGGESTIVE OF SUBMUCOSAL LEIOMYOMA AND POLYPOID FRAGMENTS OF SECRETORY ENDOMETRIUM. Electronically Signed Amalia Barajas M.D. Gross Description Received in formalin labeled "fibroid," is a 3 g, 5.3 x 4.7 x 0.4 cm aggregate of galeas red soft tissue fragments. The formalin is filtered and the specimen is entirely submitted in 4 cassettes. /05/05/2019 saudi05/05/2019
--- NOTE | 2019-05-09 15:39 | OP ---
DATE OF OPERATION: 05/05/2019 PREOPERATIVE DIAGNOSIS: Endometrial polyp. OPERATION: Hysteroscopic myomectomy, suction dilation and curettage. POSTOPERATIVE DIAGNOSIS: Endometrial polyp, submucosal myoma. SURGEON: Nicki Mota MD ANESTHESIA: General. DESCRIPTION OF PROCEDURE: Patient was taken to the operating room, placed in dorsal lithotomy position, prepped and draped in the usual sterile fashion. Time-out was performed in accordance with hospital regulation. Speculum was placed in the vagina. Anterior lip of the cervix was grasped with a single-tooth tenaculum. Cervix was then dilated to accommodate the operative hysteroscope. Operative hysteroscope was then inserted, and cautery and cutting of submucosal myoma and endometrial polyp was then done. Repeat procedure with suction dilation and curettage was done. After 2 or 3 hysteroscopic myomectomy resections, the cavity appeared to be within normal limits. All contents were then removed and were submitted to Pathology. Patient tolerated procedure well. Estimated blood loss 5 mL. NICKI MOTA M.D. MIKE/[id number]
== END 2019-05-05 14:35 | disposition home or self-care (01) ==
LOC: JASU-SURG 05:21
PROVIDERS: ATTEND Obstetrics & Gynecology
PROC: 0UJD8ZZ Inspection of Uterus and Cervix, Via Natural or Artificial Opening Endoscopic (ICD-10-PCS; 2019-05-05)
PROC: 0UB98ZZ Excision of Uterus, Via Natural or Artificial Opening Endoscopic (ICD-10-PCS; principal; 2019-05-05 10:00)
PROC: 0UDB7ZX Extraction of Endometrium, Via Natural or Artificial Opening, Diagnostic (ICD-10-PCS; 2019-05-05 10:00)
DX: N84.0 Polyp of corpus uteri (principal); D25.0 Submucous leiomyoma of uterus
CPT/HCPCS: 84703; 88307-TC; 94760

== ENCOUNTER 2021-07-26 17:56 | Emergency (ER) | payer OTHER ==
[2021-07-26 18:18] VITALS: TEMP 97.6; BMI 34.8
[2021-07-26] MEDS ORDERED: KETOROLAC TROMETHAMINE 30 MG/1 ML VIAL IVPUSH ONE (19:54)
[2021-07-26 20:11] LABS: URINE APPEARANCE CLEAR; URINE BILIRUBIN NEGATIVE (NEGATIVE); URINE COLOR YELLOW; URINE GLUCOSE (UA) NEGATIVE (NEGATIVE); URINE KETONE NEGATIVE (NEGATIVE); URINE LEUK ESTERASE NEGATIVE (NEGATIVE); URINE NITRITE NEGATIVE (NEGATIVE); URINE PROTEIN NEGATIVE (NEGATIVE); URINE UROBILINOGEN 0.2 mg/dL (0.2-1.0)
[2021-07-26 20:14] LABS: HCG,QUALITATIVE URINE Negative
[2021-07-26 20:21] LABS: BASO % 0.4 % (0-2.0); EOS % 1.1 % (0-4.5); HEMATOCRIT 39.4 % (32.4-45.2); HEMOGLOBIN 13.5 GM/dL (10.7-15.3); LYMPH % 29.2 % (8-40); MCH 29.2 pg (25.7-33.7); MCHC 34.2 g/dl (32.0-36.0); MEAN CELL VOLUME 85.4 fl (80-96); MEAN PLT VOLUME 7.1 fl (7.5-11.1); MONO % 5.5 % (3.8-10.2); NEUT % 63.8 % (42.8-82.8); PLATELET COUNT 326 10^3/uL (134-434); RBC 4.61 M/mm3 (3.60-5.2); RDW 14.4 % (11.6-15.6); WHITE BLOOD COUNT 7.5 K/mm3 (4.0-10.0)
[2021-07-26] MEDS ORDERED: KETOROLAC TROMETHAMINE 30 MG/1 ML VIAL ONE (20:27)
[2021-07-26 20:36] LABS: ALBUMIN 3.6 g/dl (3.4-5.0); BLOOD UREA NITROGEN 17.5 mg/dL (7-18); CALCIUM 9.8 mg/dL (8.5-10.1)
[2021-07-26 20:38] LABS: CREATININE 0.8 mg/dL (0.55-1.3)
[2021-07-26 20:40] LABS: BILIRUBIN,TOTAL 0.2 mg/dL (0.2-1); TOT PROT 7.3 g/dl (6.4-8.2)
[2021-07-26] MEDS ORDERED: PANTOPRAZOLE 40 MG TABLET PO ONE (23:19)
[2021-07-26] MEDS ORDERED: AMOX TR/POT CLAV 875MG/125MG TABLETS (FP) PO ONE (23:23)
[2021-07-26] MEDS ORDERED: AMOX TR/POT CLAV 875MG/125MG TABLETS (FP) ONE (23:26)
[2021-07-26] MEDS ORDERED: PANTOPRAZOLE 40 MG TABLET ONE (23:26)
[2021-07-26 23:44] VITALS: BP 118/64; PULSE 74
== END 2021-07-26 23:45 | disposition home or self-care (01) ==
LOC: JER 17:56
PROC: 3E0333Z Introduction of Anti-inflammatory into Peripheral Vein, Percutaneous Approach (ICD-10-PCS; principal; 2021-07-26)
DX: R10.32 Left lower quadrant pain (principal)
CPT/HCPCS: 36415; 74177-TC; 80053; 81003; 83690; 84703; 85025; 87086; 99285-25; Q9967

== ENCOUNTER 2021-09-15 19:06 | Emergency (ER) | payer OTHER ==
[2021-09-15 19:22] VITALS: BP 128/81; PULSE 90; TEMP 98.3; BMI 34.0
[2021-09-15 21:49] LABS: BASO % 0.9 % (0-2.0); EOS % 0.9 % (0-4.5); HEMATOCRIT 39.6 % (32.4-45.2); HEMOGLOBIN 13.6 GM/dL (10.7-15.3); LYMPH % 33.9 % (8-40); MCH 29.2 pg (25.7-33.7); MCHC 34.5 g/dl (32.0-36.0); MEAN CELL VOLUME 84.7 fl (80-96); MEAN PLT VOLUME 6.9 fl (7.5-11.1); MONO % 6.2 % (3.8-10.2); NEUT % 58.1 % (42.8-82.8); PLATELET COUNT 347 10^3/uL (134-434); RBC 4.67 M/mm3 (3.60-5.2); RDW 14.1 % (11.6-15.6); WHITE BLOOD COUNT 6.7 K/mm3 (4.0-10.0)
[2021-09-15 21:54] LABS: PH,URINE 7.5 (5.0-8.0); URINE APPEARANCE CLOUDY; URINE BILIRUBIN NEGATIVE (NEGATIVE); URINE COLOR DK YELLOW; URINE GLUCOSE (UA) NEGATIVE (NEGATIVE); URINE KETONE NEGATIVE (NEGATIVE); URINE LEUK ESTERASE NEGATIVE (NEGATIVE); URINE NITRITE NEGATIVE (NEGATIVE); URINE PROTEIN NEGATIVE (NEGATIVE); URINE UROBILINOGEN 0.2 mg/dL (0.2-1.0)
[2021-09-15 21:57] LABS: HCG,QUALITATIVE URINE Negative
[2021-09-15 22:10] LABS: CALCIUM 8.6 mg/dL (8.5-10.1)
[2021-09-15 22:11] LABS: ALBUMIN 3.9 g/dl (3.4-5.0); BLOOD UREA NITROGEN 12.1 mg/dL (7-18)
[2021-09-15 22:14] LABS: CREATININE 0.7 mg/dL (0.55-1.3)
[2021-09-15 22:16] LABS: BILIRUBIN,TOTAL 0.1 mg/dL (0.2-1); TOT PROT 7.6 g/dl (6.4-8.2)
== END 2021-09-16 00:23 | disposition home or self-care (01) ==
LOC: JER 19:06
DX: R10.9 Unspecified abdominal pain (principal); K59.00 Constipation, unspecified
CPT/HCPCS: 36415; 74019-TC-FY; 74177-TC; 80053; 81003; 84703; 85025; 99285-25; Q9967

== ENCOUNTER 2022-08-11 06:26 | Emergency (ER) | payer OTHER ==
[2022-08-11 06:33] VITALS: RESP 18; TEMP 98; BMI 33.6
[2022-08-11] MEDS ORDERED: ACETAMINOPHEN 1000 MG/100 ML BAG IVPB ONE (07:15)
[2022-08-11] MEDS ORDERED: ONDANSETRON 4 MG/2 ML VIAL IVPUSH ONE (07:15)
[2022-08-11] MEDS ORDERED: FAMOTIDINE 20 MG/50 ML IVPB 20 MG/50 ML MG IVPB ONE (07:15)
[2022-08-11] MEDS ORDERED: MAG HYDROX/AL HYDROX/SIMETH -MYLANTA- ORAL SUSPENSION PO ONE (07:17)
[2022-08-11] MEDS ORDERED: SUCRALFATE 1 GM TABLET (FP) PO ONE (07:18)
[2022-08-11] MEDS ORDERED: ACETAMINOPHEN INJECTION 100 ML IVPB ONE (07:47)
[2022-08-11] MEDS ORDERED: SUCRALFATE 1 GM TABLET (FP) ONE (07:47)
[2022-08-11] MEDS ORDERED: ONDANSETRON 4 MG/2 ML VIAL ONE (07:48)
[2022-08-11] MEDS ORDERED: FAMOTIDINE 10 MG/ML VIAL IVPB ONE (07:48)
[2022-08-11] MEDS ORDERED: MAG HYDROX/AL HYDROX/SIMETH 30 ML UNIT-DOSE CUP ONE (07:48)
[2022-08-11] MEDS ORDERED: SODIUM CHLORIDE 0.9% 500 ML INFUS.BAG IV ONE (08:38)
[2022-08-11 09:04] LABS: EPI CELLS >36 /uL (0-25.1); HYALINE CASTS 9 /uL (0-3.1); PH,URINE 5.5 (5.0-8.0); URINE APPEARANCE CLOUDY; URINE BACTERIA 2190 /uL (0-1359); URINE BILIRUBIN 1+ (NEGATIVE); URINE COLOR DK YELLOW; URINE GLUCOSE (UA) NEGATIVE (NEGATIVE); URINE KETONE 1+ (NEGATIVE); URINE LEUK ESTERASE 2+ (NEGATIVE); URINE NITRITE NEGATIVE (NEGATIVE); URINE PROTEIN TRACE (NEGATIVE); URINE WBC 95 /uL (0-25.8)
[2022-08-11 09:07] LABS: ALBUMIN 3.8 g/dl (3.4-5.0); BASO % 0.4 % (0-2.0); CALCIUM 9.2 mg/dL (8.5-10.1); EOS % 0.7 % (0-4.5); HEMATOCRIT 40.9 % (32.4-45.2); HEMOGLOBIN 13.4 GM/dL (10.7-15.3); LYMPH % 23.8 % (8-40); MCH 27.9 pg (25.7-33.7); MCHC 32.8 g/dl (32.0-36.0); MEAN CELL VOLUME 84.9 fl (80-96); MEAN PLT VOLUME 7.5 fl (7.5-11.1); MONO % 7.6 % (3.8-10.2); NEUT % 67.5 % (42.8-82.8); PLATELET COUNT 361 10^3/uL (134-434); RBC 4.81 M/mm3 (3.60-5.2); RDW 14.4 % (11.6-15.6); WHITE BLOOD COUNT 5.7 K/mm3 (4.0-10.0)
[2022-08-11 09:08] LABS: BLOOD UREA NITROGEN 11.6 mg/dL (7-18)
[2022-08-11 09:11] LABS: CREATININE 0.9 mg/dL (0.55-1.3)
[2022-08-11 09:13] LABS: BILIRUBIN,TOTAL 0.5 mg/dL (0.2-1); TOT PROT 7.5 g/dl (6.4-8.2)
[2022-08-11] MEDS ORDERED: CEFTRIAXONE 1,000 MG in DEXTROSE 5%-WATER - 50 ML IVPB ONE (09:25)
[2022-08-11] MEDS ORDERED: CEFTRIAXONE 1 GM/50 ML BAG ONE (09:54)
[2022-08-11 09:55] LABS: URINE RBC 26.1 /uL (0-23.9)
[2022-08-11 12:48] VITALS: BP 121/75; PULSE 85
== END 2022-08-11 12:48 | disposition home or self-care (01) ==
LOC: JER 06:26
PROC: 3E033GC Introduction of Other Therapeutic Substance into Peripheral Vein, Percutaneous Approach (ICD-10-PCS; principal; 2022-08-11)
PROC: 3E033NZ Introduction of Analgesics, Hypnotics, Sedatives into Peripheral Vein, Percutaneous Approach (ICD-10-PCS; 2022-08-11)
PROC: 3E03329 Introduction of Other Anti-infective into Peripheral Vein, Percutaneous Approach (ICD-10-PCS; 2022-08-11)
PROC: 3E033GC Introduction of Other Therapeutic Substance into Peripheral Vein, Percutaneous Approach (ICD-10-PCS; 2022-08-11)
DX: O23.31 Infections of other parts of urinary tract in pregnancy, first trimester (principal); O26.891 Other specified pregnancy related conditions, first trimester; N39.0 Urinary tract infection, site not specified; R10.84 Generalized abdominal pain; Z3A.01 Less than 8 weeks gestation of pregnancy; Z32.01 Encounter for pregnancy test, result positive
CPT/HCPCS: 36415; 76817-TC; 80053; 81003; 83605; 83690; 83735; 84702; 84703; 85025; 87086; 99284-25

== ENCOUNTER 2022-08-13 09:18 | Emergency (ER) | payer OTHER ==
[2022-08-13 09:33] VITALS: BP 135/82; PULSE 58; RESP 16; TEMP 98.1; BMI 34.1
== END 2022-08-13 13:12 | disposition home or self-care (01) ==
LOC: JERFT 09:18 → JER 09:18 → JERFT 13:12
DX: Z36.2 Encounter for other antenatal screening follow-up (principal); Z09 Encounter for follow-up examination after completed treatment for conditions other than malignant neoplasm; Z3A.01 Less than 8 weeks gestation of pregnancy
CPT/HCPCS: 36415; 76817-TC; 84702; 99284-25

== ENCOUNTER 2023-05-29 12:03 | Emergency (ER) | payer OTHER ==
[2023-05-29 12:27] VITALS: BP 118/70; PULSE 106; RESP 18; TEMP 98.3; BMI 34.7
[2023-05-29] MEDS ORDERED: SODIUM CHLORIDE 0.9% 500 ML INFUS.BAG IV ONE (12:42)
[2023-05-29 13:22] LABS: BASO % 0.2 % (0-2.0); HEMATOCRIT 41.7 % (32.4-45.2); HEMOGLOBIN 14.3 GM/dL (10.7-15.3); LYMPH % 11.9 % (8-40); MCH 28.8 pg (25.7-33.7); MCHC 34.3 g/dl (32.0-36.0); MEAN CELL VOLUME 83.8 fl (80-96); MEAN PLT VOLUME 7.1 fl (7.5-11.1); MONO % 6.7 % (3.8-10.2); NEUT % 81.2 % (42.8-82.8); PLATELET COUNT 304 10^3/uL (134-434); RBC 4.98 M/mm3 (3.60-5.2); RDW 14.2 % (11.6-15.6); WHITE BLOOD COUNT 9.1 K/mm3 (4.0-10.0)
[2023-05-29 14:23] LABS: POTASSIUM 3.4 mmol/L (3.5-5.1)
[2023-05-29 14:26] LABS: ALBUMIN 3.3 g/dl (3.4-5.0); BLOOD UREA NITROGEN 11.8 mg/dL (7-18); CALCIUM 8.6 mg/dL (8.5-10.1)
[2023-05-29 14:29] LABS: CREATININE 0.8 mg/dL (0.55-1.3)
[2023-05-29 14:31] LABS: BILIRUBIN,TOTAL 0.2 mg/dL (0.2-1); TOT PROT 7.1 g/dl (6.4-8.2)
[2023-05-29] MEDS ORDERED: POTASSIUM CHLORIDE ORAL LIQUID 20 MEQ/15 ML PO ONE (14:42)
[2023-05-29 14:44] LABS: URINE APPEARANCE CLEAR; URINE BILIRUBIN 1+ (NEGATIVE); URINE COLOR DK YELLOW; URINE GLUCOSE (UA) NEGATIVE (NEGATIVE); URINE KETONE 1+ (NEGATIVE); URINE LEUK ESTERASE NEGATIVE (NEGATIVE); URINE NITRITE NEGATIVE (NEGATIVE); URINE PROTEIN TRACE (NEGATIVE)
[2023-05-29] MEDS ORDERED: POTASSIUM CHLORIDE ORAL LIQUID 20 MEQ/15 ML ONE (14:56)
[2023-05-29 15:55] LABS: POTASSIUM 4.3 mmol/L (3.5-5.1)
[2023-05-29 15:58] LABS: ALBUMIN 3.4 g/dl (3.4-5.0); CALCIUM 8.5 mg/dL (8.5-10.1)
[2023-05-29 15:59] LABS: BLOOD UREA NITROGEN 11.4 mg/dL (7-18)
[2023-05-29 16:02] LABS: CREATININE 0.8 mg/dL (0.55-1.3)
[2023-05-29 16:03] LABS: BILIRUBIN,TOTAL 0.3 mg/dL (0.2-1); TOT PROT 7.1 g/dl (6.4-8.2)
== END 2023-05-29 17:59 | disposition home or self-care (01) ==
LOC: JER 12:03
DX: R10.12 Left upper quadrant pain (principal); R19.7 Diarrhea, unspecified; Z20.822 Contact with and (suspected) exposure to COVID-19
CPT/HCPCS: 0241U-QW; 36415; 74177-TC; 80053; 81003; 84703; 85025; 87086; 99285-25; Q9967

== ENCOUNTER 2024-04-22 09:17 | Emergency (ER) | payer OTHER ==
[2024-04-22 09:36] VITALS: BP 119/84; PULSE 79; RESP 17; TEMP 97.5; BMI 33.8
[2024-04-22] MEDS ORDERED: MAG HYDROX/AL HYDROX/SIMETH 30 ML UNIT-DOSE CUP ONE (12:31)
[2024-04-22] MEDS: MAG HYDROX/AL HYDROX/SIMETH 30 ML UNIT-DOSE CUP PO ONE (12:41)
== END 2024-04-22 12:45 | disposition home or self-care (01) ==
LOC: JER 09:17
DX: K21.9 Gastro-esophageal reflux disease without esophagitis (principal)
CPT/HCPCS: 99283-25

== ENCOUNTER 2024-10-09 13:05 | Emergency (ER) | payer OTHER ==
[2024-10-09 13:14] VITALS: BP 128/81; PULSE 89; RESP 20; TEMP 97.9; BMI 35.5
[2024-10-09 14:26] LABS: ABSOLUTE IMMATURE GRANULOCYTES 0.02 x10^3/uL (0.0-0.031); BASOPHILS # 0.03 x10^3/uL (0.01-0.08); EOSINOPHIL % 0.6 % (0.7-5.8); EOSINOPHILS # 0.04 x10^3/uL (0.04-0.36); HEMATOCRIT 43.5 % (34.1-44.9); HEMOGLOBIN 14.4 g/dL (11.2-15.7); MCHC 33.1 g/dl (32.2-35.5); MEAN CELL VOLUME 84.6 fl (79.4-94.8); MEAN PLT VOLUME 8.7 fl (9.4-12.3); MONOCYTE # 0.39 x10^3/uL (0.24-0.86); MONOCYTE % 6.2 % (4.7-12.5); PLATELET COUNT 343 x10^3/uL (182-369); RDW 13.8 % (12.1-16.8)
[2024-10-09 14:36] LABS: URINE APPEARANCE CLEAR; URINE BILIRUBIN NEGATIVE (NEGATIVE); URINE COLOR YELLOW; URINE GLUCOSE (UA) NEGATIVE (NEGATIVE); URINE KETONE TRACE (NEGATIVE); URINE LEUK ESTERASE NEGATIVE (NEGATIVE); URINE NITRITE NEGATIVE (NEGATIVE); URINE PROTEIN NEGATIVE (NEGATIVE); URINE UROBILINOGEN 0.2 mg/dL (0.2-1.0)
[2024-10-09 14:46] LABS: POTASSIUM 4.6 mmol/L (3.5-5.1)
[2024-10-09 14:48] LABS: BLOOD UREA NITROGEN 13.2 mg/dL (7-18); CALCIUM 9.4 mg/dL (8.5-10.1)
[2024-10-09 14:52] LABS: CREATININE 0.8 mg/dL (0.55-1.3)
[2024-10-09 14:53] LABS: BILIRUBIN,TOTAL 0.6 mg/dL (0.2-1); TOT PROT 7.6 g/dl (6.4-8.2)
[2024-10-09 14:56] LABS: HCG,QUALITATIVE URINE Negative
[2024-10-09 15:44] LABS: HCV DIAGNOSTIC IN-HOUSE W/RFLX NON-REACTIVE (NONREACTIVE); HIV INTERPRETATION NEGATIVE (NEGATIVE)
== END 2024-10-09 15:30 | disposition home or self-care (01) ==
LOC: JERFT 13:05
DX: R53.81 Other malaise (principal); M54.50 Low back pain, unspecified; N92.6 Irregular menstruation, unspecified; R50.9 Fever, unspecified
CPT/HCPCS: 0241U-QW; 36415; 80053; 81003; 84703; 85025; 86803; 87086; 87389; 99283-25